=== PATIENT | female | born 1975 | race Native Hawaiian/Other Pacific Islander ===

== ENCOUNTER 2022-08-28 04:54 | Emergency (ER) | payer OTHER ==
[~2022-08-28] VITALS: Ht 175.3 cm; Wt 72.6 kg
[2022-08-28 06:00] LABS: PLATELET COUNT 328 K/uL (152-353)
[2022-08-28 06:03] LABS: POTASSIUM 4.3 mmol/L (3.6-5.2)
[2022-08-28 07:10] VITALS: BP 150/91; TEMP 98.5
== END 2022-08-28 07:15 | disposition home or self-care (01) ==
LOC: ED 04:54
PROVIDERS: Emergency Medicine Emergency Medical Services
DX: N39.0 Urinary tract infection, site not specified (principal); N20.0 Calculus of kidney; F17.210 Nicotine dependence, cigarettes, uncomplicated; G89.4 Chronic pain syndrome
CPT/HCPCS: 80053; 80307; 81000; 81025; 85027; 87040; 87077; 87086; 87088; 87186; 87205; 96361; 96365; 96375; 99284; J0696; J2270; J2405